=== PATIENT | male | born 1980 | race Caucasian/White ===

== ENCOUNTER 2022-05-20 11:48 | Emergency (ER) | payer OTHER ==
[~2022-05-20] VITALS: Ht 190.5 cm; Wt 129.3 kg
[2022-05-20 12:19] VITALS: BP 135/93
[2022-05-20 13:40] LABS: BASOPHILS # (AUTO) 0.1 K/uL (0.00-0.22); BASOPHILS % (AUTO) 0.8 % (0.0-2.0); EOSINOPHILS # (AUTO) 0.2 K/uL (0-0.4); HEMOGLOBIN 18.5 g/dL (12.0-18.0); LYMPHOCYTES # (AUTO) 2.5 K/uL (2.0-11.5); LYMPHOCYTES % (AUTO) 29.7 % (20.5-51.1); MEAN CORPUSCULAR HEMOGLOBIN 30 pg (27-31); MEAN CORPUSCULAR HGB CONC 33 g/dL (33-37); MEAN CORPUSCULAR VOLUME 90.9 fL (80-94); MONOCYTES # (AUTO) 0.7 K/uL (0.8-1.0); MONOCYTES % (AUTO) 8.1 % (1.7-9.3); NEUTROPHILS # (AUTO) 4.9 K/uL (1.8-7.7); NEUTROPHILS % (AUTO) 59.4 % (42.2-75.2); PLATELET COUNT (AUTO) 217 K/uL (140-450); RED BLOOD CELL COUNT(AUTO) 6.16 MIL/uL (4.20-6.10); RED CELL DISTRIBUTION WIDTH 13.8 % (11.6-13.7); WHITE BLOOD COUNT (AUTO) 8.3 K/uL (4.8-10.8)
--- NOTE | 2022-05-20 13:57 | NUR ---
42YO MALE PT C/O BODY CRAMPING X1WEEK. DENIES PAIN BUT STATES BODY DISCOMFORT AND WILL "TENSE UP" . PT HAS REOCCURING EPISODES THAT WAS RELIEVE AFTER HYDRATING BY "DRINKING ALOT OF WATER AND EATING A BANANA". STATES HE WORKS IN [employer] FOR UP TO 12HRS AND IN [employer], USUALLY WHEN MOST EPISODES OCCUR. DENIES N/V/D, CHEST PAIN, SOB , FEVER OR CHILLS. PT AAOX4, NO VISIBLE DISTRESS. RESPIRATIONS EVEN AND UNLABORED HX: DENIES NKA
[2022-05-20 14:22] LABS: ALBUMIN 3.7 g/dL (3.4-5.0); ANION GAP 11.7 (8-16); CARBON DIOXIDE 26.8 mmol/L (21-32); CREATININE 1.3 mg/dL (0.6-1.3); MAGNESIUM 2.2 mg/dL (1.8-2.4); POTASSIUM 4.5 mmol/L (3.5-5.1); TOTAL BILIRUBIN 0.6 mg/dL (0.0-1.0)
[2022-05-20 15:35] VITALS: BP 148/97
--- NOTE | 2022-05-20 15:35 | NUR ---
Patient discharged with v/s stable. Written and verbal after care instructions given and explained. Patient verbalized understanding. Ambulatory with steady gait. All questions addressed prior to discharge. Advised to follow up with PMD. WORK NOTE PROVIDED
--- NOTE | 2022-05-20 15:36 | NUR ---
Chart checked and completed. The patient's care was reviewed and supervised by Rachel Valencia RN.
== END 2022-05-20 15:35 | disposition home or self-care (01) ==
LOC: MED 11:48
DX: R25.2 Cramp and spasm (principal); E83.51 Hypocalcemia
CPT/HCPCS: 36415; 80053; 81002; 83735; 85025; 99283

== ENCOUNTER 2022-08-13 11:42 | Emergency (ER) | payer OTHER ==
[~2022-08-13] VITALS: Ht 190.5 cm; Wt 124.7 kg
[2022-08-13 11:58] VITALS: BP 140/92
--- NOTE | 2022-08-13 12:03 | NUR ---
PT AMBULATED TO LOBBY
--- NOTE | 2022-08-13 12:03 | NUR ---
Kassanrda chandler in [facility] - 08/13/22 at 1203 by [id number] PT [id number]
--- NOTE | 2022-08-13 12:30 | NUR ---
BIB SELF C/O COUGH, 4/10 HEADACHE, CONGESTION ONSET 2 WKS. PT REPORTS NO IMPROVEMENTS.
--- NOTE | 2022-08-13 13:15 | NUR ---
COVID AND FLU SWAB COLLECTED AND SENT TO LAB
--- NOTE | 2022-08-13 13:50 | NUR ---
Kassandra chandler in ED - 08/13/22 at 1351 by [email or web address] CALLED X1. NO SHOW.
[2022-08-13] MEDS ORDERED: KETOROLAC 30 MG/ML VIAL IM ONE (14:00)
--- NOTE | 2022-08-13 16:07 | NUR ---
PATIENT ELOPED FROM FACILITY. DISCHARGE INSTRUCTIONS NOT GIVEN TO PATIENT. DR. FANG NOTIFIED.
== END 2022-08-13 16:07 | disposition left against medical advice (07) ==
LOC: MED 11:42
DX: J10.1 Influenza due to other identified influenza virus with other respiratory manifestations (principal); Z20.822 Contact with and (suspected) exposure to COVID-19
CPT/HCPCS: 71045; 81002; 87426; 87804; 96372; 99284; J1885

== ENCOUNTER 2022-12-12 13:44 | Emergency (ER) | payer OTHER ==
[~2022-12-12] VITALS: Ht 190.5 cm; Wt 127.0 kg
[2022-12-12 15:46] VITALS: BP 146/91
[2022-12-12] MEDS ORDERED: KETOROLAC 30 MG/ML VIAL IM ONE (15:55)
[2022-12-12 16:23] LABS: BASOPHILS # (AUTO) 0.1 K/uL (0.00-0.22); BASOPHILS % (AUTO) 0.9 % (0.0-2.0); EOSINOPHILS # (AUTO) 0.2 K/uL (0-0.4); HEMATOCRIT 56.7 % (36-52); HEMOGLOBIN 19.5 g/dL (12.0-18.0); LYMPHOCYTES # (AUTO) 2.7 K/uL (2.0-11.5); LYMPHOCYTES % (AUTO) 27.4 % (20.5-51.1); MEAN CORPUSCULAR HEMOGLOBIN 31 pg (27-31); MEAN CORPUSCULAR HGB CONC 34 g/dL (33-37); MEAN CORPUSCULAR VOLUME 89.8 fL (80-94); MONOCYTES # (AUTO) 0.6 K/uL (0.8-1.0); MONOCYTES % (AUTO) 6.5 % (1.7-9.3); NEUTROPHILS # (AUTO) 6.2 K/uL (1.8-7.7); NEUTROPHILS % (AUTO) 63.2 % (42.2-75.2); PLATELET COUNT (AUTO) 282 K/uL (140-450); RED BLOOD CELL COUNT(AUTO) 6.32 MIL/uL (4.20-6.10); RED CELL DISTRIBUTION WIDTH 13.5 % (11.6-13.7); WHITE BLOOD COUNT (AUTO) 9.8 K/uL (4.8-10.8)
[2022-12-12 16:50] LABS: ANION GAP 9.3 (8-16); CREATININE 1.5 mg/dL (0.6-1.3); POTASSIUM 4.3 mmol/L (3.5-5.1); TOTAL BILIRUBIN 0.5 mg/dL (0.0-1.0)
[2022-12-12] MEDS ORDERED: LIDOCAINE 5% 1 EA PATCH TP ONE ×2 (17:40→18:50)
[2022-12-12] MEDS ORDERED: MORPHINE SULFATE 4 MG/ML SYR IM ONE (18:45)
[2022-12-12 19:14] LABS: APPEARANCE,URINE CLEAR (CLEAR); BILIRUBIN,URINE NEGATIVE (NEGATIVE); BLOOD, URINE TRACE-I (NEGATIVE); COLOR,URINE YELLOW (YELLOW); LEUKOCYTE ESTERASE ,URINE NEGATIVE (NEGATIVE); NITRITE, URINE NEGATIVE (NEGATIVE); PH,URINE 6.5 (5.0-9.0); UGLUCOSE NEGATIVE (NEGATIVE)
[2022-12-12 19:25] LABS: RBC,URINE 0-5 /HPF (0-5); WBC,URINE 0-5 /HPF (0-5)
[2022-12-12] MEDS ORDERED: IBUP-2213 PO (19:37)
[2022-12-12] MEDS ORDERED: LID5T TP (19:37)
[2022-12-12] MEDS ORDERED: MIRABULK PO (19:41)
--- NOTE | 2022-12-12 19:41 | NUR ---
Patient discharged with v/s stable. Written and verbal after care instructions given and explained. Patient alert, oriented and verbalized understanding of instructions. Ambulatory with steady gait. All questions addressed prior to discharge. ID band removed. Patient advised to follow up with PMD. Rx of MIRALAX, MOTRIN, AND LIDOCAINE given. Patient educated on indication of medication including possible reaction and side effects. Opportunity to ask questions provided and answered.
== END 2022-12-12 19:41 | disposition home or self-care (01) ==
LOC: MED 13:44
DX: R10.11 Right upper quadrant pain (principal); N20.0 Calculus of kidney; Z79.899 Other long term (current) drug therapy
CPT/HCPCS: 36415; 74176; 76705; 80053; 81001; 83690; 85025; 96372; 99285; J1885; J2270; Q0092

== ENCOUNTER 2023-05-15 10:20 | Emergency (ER) | payer OTHER ==
[~2023-05-15] VITALS: Ht 182.9 cm; Wt 99.8 kg
[~2023-05-15 10:20] MED LIST: IBUP-2213 PO; LID5T TP; MIRABULK PO
[2023-05-15 10:55] VITALS: BP 138/84; PULSE 86; RESP 18; TEMP 97; O2SAT 98
== END 2023-05-15 12:45 | disposition left against medical advice (07) ==
LOC: MED 10:20
DX: M54.2 Cervicalgia (principal); M25.511 Pain in right shoulder; Z53.21 Procedure and treatment not carried out due to patient leaving prior to being seen by health care provider
CPT/HCPCS: 99281